=== PATIENT | male | born 1980 ===

== ENCOUNTER → 2018-02-20 | Outpatient (CLI) | payer OTHER ==
[~2018-02-20] MED LIST: HYOSCYAMINE0.125 M1 SL; Intestinex CAP PO; MONTELUKAST SOD10 MG PO; OXYC1TAB9 PO; ZOFRAN4 MG
== END | disposition home or self-care (01) ==
LOC: RX STUDY 09:45
DX: C20 Malignant neoplasm of rectum (principal); R19.4 Change in bowel habit; R19.5 Other fecal abnormalities; R10.32 Left lower quadrant pain

== ENCOUNTER 2018-06-14 09:43 | Inpatient (IN) | payer OTHER ==
[~2018-06-14] VITALS: Ht 180.3 cm; Wt 61.2 kg
[2018-06-14] MEDS ORDERED: IMODIUM A-D2 M2 PO (10:44)
[2018-07-02] MEDS ORDERED: DICLOFENAC POTA50 MG PO (15:53)
[2018-07-02] MEDS ORDERED: PROTONIX40 MG PO (15:53)
[2018-07-02] MEDS ORDERED: INTESTINEX680 M1 PO (15:54)
== END 2018-07-02 18:42 | disposition home or self-care (01) | DRG 330 ==
LOC: SURH 06-25 05:45 → O/R 06-25 05:45 → SURH 06-25 07:00
PROVIDERS: Surgery
PROC: 0DQB4ZZ Repair Ileum, Percutaneous Endoscopic Approach (ICD-10-PCS; principal; 2018-06-25 07:00)
PROC: 02H633Z Insertion of Infusion Device into Right Atrium, Percutaneous Approach (ICD-10-PCS; 2018-06-27)
PROC: 3E0436Z Introduction of Nutritional Substance into Central Vein, Percutaneous Approach (ICD-10-PCS; 2018-06-27)
DX: C20 Malignant neoplasm of rectum (principal); K56.0 Paralytic ileus; K91.89 Other postprocedural complications and disorders of digestive system; Z43.2 Encounter for attention to ileostomy; D64.89 Other specified anemias; K59.09 Other constipation